=== PATIENT | male | born 1975 | race Caucasian/White ===

== ENCOUNTER 2021-06-25 18:19 | Emergency (ER) | payer MEDICAID ==
[~2021-06-25] VITALS: Ht 167.6 cm; Wt 88.0 kg
[2021-06-25 18:25] VITALS: BP 141/77
--- NOTE | 2021-06-25 19:10 | NUR ---
45 y/o M BIB self from home c/o RUQ pain x 2 months. Patient A&Ox4, ambulatory reports he noticed an "abdominal mass" to RUQ, 05/27, pressure/intermittent, non-radiating pain. Pt also reports headache to occiptal region and intermittent dizziness at night. Pt denies nausea, vomiting, diarrhea, chest pain, fever, chills, dysuria. Bowel sounds active x 4 quadrants. Pt states Ibuprofen yesterday with minor relief. Denies other medications prior to arrival. Bed locked in lowest position, side rails x 1. PMH/Sx/Meds: Denies NKDA
--- NOTE | 2021-06-25 19:12 | NUR ---
Pt ambulated to restroom for urine sample.
--- NOTE | 2021-06-25 19:20 | NUR ---
TRANSFER OF CARE. REPORT RECIEVED FROM PAN FILED.
--- NOTE | 2021-06-25 19:23 | NUR ---
Report and transfer of care endorsed to RASHIDA Chen and RASHIDA Solares.
--- NOTE | 2021-06-25 19:28 | NUR ---
Pt taken to CT via wheelchair
[2021-06-25 19:40] LABS: BASOPHILS # (AUTO) 0.1 K/uL (0.00-0.22); BASOPHILS % (AUTO) 0.8 % (0.0-2.0); EOSINOPHILS # (AUTO) 0.3 K/uL (0-0.4); EOSINOPHILS % (AUTO) 4.3 % (0.0-4.0); HEMATOCRIT 40.4 % (36-52); HEMOGLOBIN 13.6 g/dL (12.0-18.0); LYMPHOCYTES # (AUTO) 2.3 K/uL (2.0-11.5); LYMPHOCYTES % (AUTO) 29.9 % (20.5-51.1); MEAN CORPUSCULAR HEMOGLOBIN 30 pg (27-31); MEAN CORPUSCULAR HGB CONC 34 g/dL (33-37); MEAN CORPUSCULAR VOLUME 88.1 fL (80-94); MONOCYTES # (AUTO) 0.5 K/uL (0.8-1.0); MONOCYTES % (AUTO) 6.9 % (1.7-9.3); NEUTROPHILS # (AUTO) 4.5 K/uL (1.8-7.7); NEUTROPHILS % (AUTO) 58.1 % (42.2-75.2); PLATELET COUNT (AUTO) 211 K/uL (140-450); RED BLOOD CELL COUNT(AUTO) 4.58 MIL/uL (4.20-6.10); RED CELL DISTRIBUTION WIDTH 12.6 % (11.6-13.7); WHITE BLOOD COUNT (AUTO) 7.7 K/uL (4.8-10.8)
[2021-06-25 19:58] LABS: ANION GAP 8.1 (8-16); CARBON DIOXIDE 31.1 mmol/L (21-32); POTASSIUM 4.2 mmol/L (3.5-5.1); TOTAL BILIRUBIN 0.5 mg/dL (0.0-1.0)
--- NOTE | 2021-06-25 20:35 | NUR ---
pt is sitting up in bed. pt in stable condition, all needs met at this time. vss. bed locked in lowest position, side rails x1.
[2021-06-25 21:42] VITALS: BP 122/78
--- NOTE | 2021-06-25 21:42 | NUR ---
Patient discharged with v/s stable. Written and verbal after care instructions given and explained. Patient verbalized understanding. Ambulatory with steady gait. All questions addressed prior to discharge. Advised to follow up with PMD.
== END 2021-06-25 21:42 | disposition home or self-care (01) ==
LOC: MED 18:19
DX: Q79.59 Other congenital malformations of abdominal wall (principal); Z98.890 Other specified postprocedural states
CPT/HCPCS: 36415; 80053; 81002; 83690; 85025; 99284